=== PATIENT | female | born 1995 | race Asian ===

== ENCOUNTER 2017-02-20 14:51 | Emergency (ER) | payer BC, SELFPAY ==
[~2017-02-20] VITALS: Ht 149.9 cm; Wt 59.0 kg
[2017-02-20 14:55] VITALS: BP 120/74
[2017-02-20 16:01] LABS: BLOOD UREA NITROGEN 15 mg/dL (7-18)
== END 2017-02-20 17:56 | disposition home or self-care (01) ==
LOC: ED 17:54
DX: O20.0 Threatened abortion (principal); Z3A.01 Less than 8 weeks gestation of pregnancy
CPT/HCPCS: 36415; 76801; 80048; 81003; 82040; 84702; 85025; 86901

== ENCOUNTER 2017-02-23 13:14 | Emergency (ER) | payer BC ==
[~2017-02-23] VITALS: Ht 149.9 cm; Wt 58.6 kg
[2017-02-23] MEDS ORDERED: ONDANSETRON ODT 4 MG ONE (14:29)
[2017-02-23] MEDS ORDERED: ONDANSETRON ODT 4 MG PO ONE (14:30)
[2017-02-23] MEDS ORDERED: SODIUM CHLORIDE FLUSH 10ML SYR IVF ONE (14:30)
[2017-02-23 15:24] LABS: BLOOD UREA NITROGEN 15 mg/dL (7-18)
[2017-02-23 15:41] LABS: ASPARTATE AMINO TRANSFERASE 15 U/L (15-37)
[2017-02-23 17:09] VITALS: BP 128/59
== END 2017-02-23 17:11 | disposition home or self-care (01) ==
LOC: ED 16:00
DX: O20.0 Threatened abortion (principal)
CPT/HCPCS: 36415; 76770; 76801; 80053; 81003; 84702; 85025; 99285; Q0162

== ENCOUNTER 2018-07-20 20:22 | Inpatient (IN) | payer BC, OTHER ==
[~2018-07-20] VITALS: Ht 149.9 cm; Wt 62.5 kg
[2018-07-20] MEDS ORDERED: ONDANSETRON 2MG/ML, 2ML ONE (20:39)
[2018-07-20 20:56] LABS: BASOPHILS # (AUTO) 0.01 x10^3/uL (0-0.1); BASOPHILS % (AUTO) 0 % (0-1); EOSINOPHILS # (AUTO) 0.16 x10^3/uL (0-0.4); EOSINOPHILS % (AUTO) 2 % (1-7); LYMPHOCYTES # (AUTO) 1.09 x10^3/uL (1-3.4); LYMPHOCYTES % (AUTO) 10 % (22-44); MD NO; MEAN CORPUSCULAR HEMOGLOBIN 29.3 pg (27.0-34.8); MEAN PLATELET VOLUME 7.8 fL (7.4-10.4); MONOCYTES # (AUTO) 0.32 x10^3/uL (0.2-0.8); MONOCYTES % (AUTO) 3 % (2-9); NEUTROPHILS # (AUTO) 9.46 x10^3/uL (1.8-6.8); NEUTROPHILS % (AUTO) 86 % (42-75); PLATELET COUNT 298 x10^3/uL (130-400); RED BLOOD COUNT 5.02 x10^6/uL (3.82-5.3); RED CELL DISTRIBUTION WIDTH 13.4 % (9.6-15.2)
[2018-07-20] MEDS ORDERED: ONDANSETRON 2MG/ML, 2ML IVPush ONE (21:00)
[2018-07-20] MEDS ORDERED: SODIUM CHLORIDE FLUSH 10ML SYR IVF ONE (21:00)
[2018-07-20] MEDS ORDERED: SODIUM CHLORIDE 0.9% 1,000ML IVBOLUS ONE (21:00)
[2018-07-20 21:08] LABS: ALANINE AMINOTRANSFERASE 17 U/L (12-78); ALBUMIN 3.3 g/dL (3.4-5.0); ANION GAP 11 mmol/L (5-15); CALCIUM 8.6 mg/dL (8.5-10.1); CHLORIDE 105 mmol/L (98-107); CREATININE 0.62 mg/dL (0.55-1.02)
[2018-07-20 21:16] LABS: CULTURE INDICATED? YES; MICROSCOPIC INDICATED
[2018-07-20 21:25] LABS: ALKALINE PHOSPHATASE 63 U/L (45-117); BILIRUBIN,TOTAL 0.3 mg/dL (0.2-1.0); TOTAL PROTEIN 8.2 g/dL (6.4-8.2)
[2018-07-20] MEDS ORDERED: ACETAMINOPHEN 500 MG TABLET PO ONE (22:00)
[2018-07-20] MEDS ORDERED: ACETAMINOPHEN 500 MG TABLET ONE (22:12)
[2018-07-20] MEDS ORDERED: DOXYLAMINE 25MG TABLET PO ONE (23:30)
[2018-07-20] MEDS ORDERED: PYRIDOXINE 25MG TABLET PO ONE (23:30)
[2018-07-20] MEDS ORDERED: CEPHALEXIN 500 MG CAPSULE PO ONE (23:30)
[2018-07-21] MEDS ORDERED: ONDANSETRON 2MG/ML, 2ML ONE (00:14)
[2018-07-21] MEDS ORDERED: CEFTRIAXONE PMX 1GM/50ML 50 ML ONE (00:14)
[2018-07-21] MEDS ORDERED: ONDANSETRON 2MG/ML, 2ML IVPush ONE (00:30)
[2018-07-21] MEDS ORDERED: CEFTRIAXONE 1,000 MG IV ONE (00:30)
[2018-07-21] MEDS ORDERED: SODIUM CHLORIDE 0.9% 1,000ML IVBOLUS ONE (01:00)
[2018-07-21] MEDS ORDERED: METOCLOPRAMIDE 5 MG/ML, 2ML ONE (01:23)
[2018-07-21] MEDS ORDERED: POTASSIUM CHLORIDE 10 MEQ in D5%-LACTATED RINGERS 1,000 ML IV SCH (01:30)
[2018-07-21] MEDS ORDERED: METOCLOPRAMIDE 5 MG/ML, 2ML IVPush PRN ×3 (01:30→05:00)
[2018-07-21] MEDS ORDERED: ONDANSETRON 2MG/ML, 2ML IVPush PRN ×2 (01:30→05:00)
[2018-07-21] MEDS ORDERED: PROMETHAZINE 25 MG/ML, 1ML IM PRN (05:00)
[2018-07-21] MEDS ORDERED: ONDANSETRON ODT 4 MG PO PRN (05:00)
[2018-07-21] MEDS ORDERED: ACETAMINOPHEN 325 MG TABLET PO PRN (05:00)
[2018-07-21] MEDS: PYRIDOXINE 25MG TABLET PO SCH ×2 (05:24→13:45)
[2018-07-21] MEDS: SODIUM CHLORIDE 0.9% 1,000 ML IV SCH ×2 (05:25→09:51)
[2018-07-21 07:05] VITALS: BP 94/53
[2018-07-21 07:25] LABS: MICROSCOPIC NOT IND
[2018-07-21 07:30] LABS: CULTURE INDICATED? NO
[2018-07-21] MEDS ORDERED: PRENATAL VIT/IRON/FA 1 EACH TABLET PO SCH (09:00)
[2018-07-21] MEDS ORDERED: DOXY1TAB3 PO (14:13)
[2018-07-21] MEDS ORDERED: METO10TA82 PO (14:13)
== END 2018-07-21 14:50 | disposition home or self-care (01) | DRG 832 ==
LOC: ED 21:34 → EDIP 07-21 01:16 → 3NE 07-21 02:06 → DCLOUNGE 07-21 14:42
PROVIDERS: ADMIT Obstetrics & Gynecology; ATTEND Obstetrics & Gynecology
DX: O21.1 Hyperemesis gravidarum with metabolic disturbance (principal); O23.42 Unspecified infection of urinary tract in pregnancy, second trimester; O32.1XX0 Maternal care for breech presentation, not applicable or unspecified; O99.282 Endocrine, nutritional and metabolic diseases complicating pregnancy, second trimester; E86.9 Volume depletion, unspecified; Z3A.17 17 weeks gestation of pregnancy
CPT/HCPCS: 36415; 99285; J7121; 76815; 80053; 81001; 81003; 84702; 85025; 87086; 96374; J0696; J2405; J3480; J2765; J7030